=== PATIENT | female | born 1945 | race Caucasian/White ===

== ENCOUNTER 2017-06-08 20:08 | Emergency (ER) | payer MEDICARE ==
[~2017-06-08] VITALS: Ht 172.7 cm; Wt 81.0 kg
[~2017-06-08 20:08] MED LIST: ALBUAER3 INH; ASPI325T PO; BENI40TA3 PO; FAMO1TAB30 PO; LEVO125T4 PO; LIOT25TA3 PO; LORA-373 PO; PRED50 PO; TRAZ50TA12 PO; TRIA1TAB PO; VENTAER INH
[2017-06-08 20:11] VITALS: BP 143/70; PULSE 65; RESP 16; TEMP 97.9; O2SAT 98
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
[2017-06-08] MEDS ORDERED: ACETAMINOPHEN 500 MG CPLT PO ONE (21:00)
[2017-06-08] MEDS ORDERED: TRIA37.5 PO (21:01)
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
== END 2017-06-08 22:38 | disposition home or self-care (01) ==
LOC: NEPD 20:08
DX: S70.02XA Contusion of left hip, initial encounter (principal); M19.90 Unspecified osteoarthritis, unspecified site; J45.909 Unspecified asthma, uncomplicated; F32.9 Major depressive disorder, single episode, unspecified; I10 Essential (primary) hypertension; E78.00 Pure hypercholesterolemia, unspecified; M79.7 Fibromyalgia; E07.9 Disorder of thyroid, unspecified; W22.8XXA Striking against or struck by other objects, initial encounter
CPT/HCPCS: 73502; 99283

== ENCOUNTER 2017-09-21 23:41 | Emergency (ER) | payer MEDICARE ==
[~2017-09-21] VITALS: Ht 167.6 cm; Wt 85.0 kg
[~2017-09-21 23:41] MED LIST changes: +ASPI-183 PO; -ASPI325T PO; +BENI40TA29 PO; -BENI40TA3 PO; -LORA-373 PO; +LORA0.5T PO; -PRED50 PO; -TRIA1TAB PO; +TRIA37.5 PO
[2017-09-21 23:43] VITALS: BP 199/91; PULSE 74; RESP 16; TEMP 98.2; O2SAT 98
--- NOTE | 2017-09-22 00:11 | PD ---
HPI Chief Complaint: Abdominal Pain Time Seen by Provider: 23:55 Travel History International Travel<30 days: No Contact w/Intl Traveler<30days: No Traveled to known affect area: No History of Present Illness HPI 72-year-old female complaining of lower abdominal pain. Patient states that the pain started about 5 hours ago. Patient states the pain in cramping pain is sharp pain localized to lower abdomen. Patient denies any pain radiation. Patient denies any nausea vomiting diarrhea. Patient states that she has dysuria today. Patient denies any frequency. Patient denies any fever chills. Patient denies any back pain. Patient had multiple abdominal surgery including partial colon resection and colostomy with reversal and hernia repair in the past. On a scale of 1-10 the pain is a 5. Patient has history of hypertension with frequent elevated blood pressure from anxiety. Patient also has history of asthma, arthritis, fibromyalgia, hyperlipidemia, depression, thyroid disease. PFSH Past Medical History Arthritis: Yes Asthma: Yes Autoimmune Disease: Yes Depression: Yes Heart Rhythm Problems: No Cancer: Yes (skin cancer) Cardiovascular Problems: Yes (HTN, heart murmur) High Cholesterol: Yes Chest Pain: No Congestive Heart Failure: No COPD: No Diabetes: No Endocrine: Yes Gastrointestinal Disorders: Yes (hx of colon resection unsure of cause or possible steroid related) GERD: No Genitourinary: No Hiatal Hernia: No Hypertension: Yes Immune Disorder: Yes (hx of fibromyalgia) Implanted Vascular Access Dvce: No Musculoskeletal: Yes Neurologic: No Psychiatric: Yes Reproductive: No Respiratory: Yes (PT STS. CURRENTLY WITH BRONCHITIS) Immunizations Current: Yes Sleep Apnea: No Thyroid Disease: Yes Ulcer: No Influenza Vaccination: No Menopausal: Yes Past Surgical History Abdominal Surgery: Yes (colon resection with colostomy with reversal hernia repair, mesh ) Body Medical Devices: MESH IMPLANT ABDOMEN Cardiac Surgery: No Ear Surgery: No Endocrine Surgery: No Eye Surgery: No Genitourinary Surgery: No Gynecologic Surgery: Yes (hysterectomy) Hysterectomy: Yes Joint Replacement: Yes (BILATERAL HIP) Neurologic Surgery: No Oral Surgery: No Pacemaker: No Thoracic Surgery: No Other Surgery: Yes Social History Alcohol Use: Yes (3-4 X WEEK, WINE OCCASIONALLY) Tobacco Use: No Substance Use: No Allergies-Medications (Allergen,Severity, Reaction): Coded Allergies: Sulfa (Sulfonamide Antibiotics) (Verified Allergy, Severe, hives,sob, ) bacitracin (Verified Allergy, Severe, sob and hives, 09/21/17) cefepime (Verified Allergy, Severe, sob,hives, 09/21/17) ceftaroline fosamil (Verified Allergy, Severe, sob,hives, 09/21/17) celecoxib (Verified Allergy, Severe, sob,hives, 09/21/17) diclofenac (Verified Allergy, Severe, 09/21/17) doxycycline (Verified Allergy, Severe, sob,welts, 09/21/17) etodolac (Verified Allergy, Severe, 09/21/17) flurbiprofen (Verified Allergy, Severe, 09/21/17) gramicidin D (Verified Allergy, Severe, sob and hives, 09/21/17) ibuprofen (Verified Allergy, Severe, 09/21/17) indomethacin (Verified Allergy, Severe, 09/21/17) ketoprofen (Verified Allergy, Severe, 09/21/17) ketorolac (Verified Allergy, Severe, 09/21/17) minocycline (Verified Allergy, Severe, sob,welts, 09/21/17) naproxen (Verified Allergy, Severe, 09/21/17) neomycin (Verified Allergy, Severe, sob and hives, 09/21/17) oxaprozin (Verified Allergy, Severe, 09/21/17) penicillin G (Verified Allergy, Severe, sob hives, 09/21/17) polymyxin B (Verified Allergy, Severe, sob and hives, 09/21/17) tigecycline (Verified Allergy, Severe, sob,welts, 09/21/17) Reported Meds & Prescriptions Reported Meds & Active Scripts Active Reported Triamterene-Hydrochlorothiazide 37.5-25 Mg Tab 1 Tab PO DAILY Ventolin Hfa 18 GM Inh (Albuterol Sulfate) 90 Mcg/Act Aer 2 Puff INH DAILY PRN Proair Hfa 8.5 GM Inh (Albuterol Sulfate) 90 Mcg/Act Aer 2 Puff INH Q4 PRN 108 mcg/actuation Aspirin 325 Mg Tab 325 Mg PO DAILY Famotidine 10 Mg Tab 10 Mg PO DAILY PRN Trazodone (Trazodone HCl) 50 Mg Tab 50 Mg PO HS Liothyronine (Liothyronine Sodium) 25 Mcg Tab 25 Mcg PO DAILY Levothyroxine (Levothyroxine Sodium) 125 Mcg Tab 125 Mcg PO DAILY Benicar (Olmesartan) 40 Mg Tab 40 Mg PO DAILY Lorazepam 0.5 Mg Tab 0.5 Mg PO TID PRN Review of Systems General / Constitutional: No: Fever Eyes: No: Visual changes HENT: No: Headaches Cardiovascular: No: Chest Pain or Discomfort Respiratory: No: Shortness of Breath Gastrointestinal: Positive: Abdominal Pain Genitourinary: Positive: Dysuria Musculoskeletal: No: Pain Skin: No Rash Neurologic: No: Weakness Psychiatric: No: Depression Endocrine: No: Polydipsia Hematologic/Lymphatic: No: Easy Bruising Physical Exam Narrative GENERAL: Well-nourished, well-developed patient. SKIN: Focused skin assessment warm/dry. HEAD: Normocephalic. EYES: No scleral icterus. No injection or drainage. NECK: Supple, trachea midline. No JVD or lymphadenopathy. CARDIOVASCULAR: Regular rate and rhythm without murmurs, gallops, or rubs. RESPIRATORY: Breath sounds equal bilaterally. No accessory muscle use. GASTROINTESTINAL: Abdomen soft, nondistended. Patient has mild to moderate tenderness on palpation lower abdomen. No rebound tenderness. No mass. Well- healed surgical scar mid abdomen. No evidence of soft tissue mass or hernia. MUSCULOSKELETAL: No cyanosis, or edema. BACK: Nontender without obvious deformity. No CVA tenderness. Neurologic exam normal. Data Data Last Documented VS Vital Signs Date Time Temp Pulse Resp B/P (MAP) Pulse Ox O2 Delivery O2 Flow Rate FiO2 09/22/17 02:09 60 16 141/66 (91) 98 Room Air 09/21/17 23:43 98.2 Orders Orders Complete Blood Count With Diff (09/22/17 00:03) Comprehensive Metabolic Panel (09/22/17 00:03) Lipase (09/22/17 00:03) Prothrombin Time / Inr (Pt) (09/22/17 00:03) Act Partial Throm Time (Ptt) (09/22/17 00:03) Urinalysis - C+S If Indicated (09/22/17 00:03) Ct Abd/Pel W Iv Contrast(Rout) (09/22/17 00:03) Iv Access Insert/Monitor (09/22/17 00:03) Ecg Monitoring (09/22/17 00:03) Oximetry (09/22/17 00:03) Sodium Chloride 0.9% Flush (Ns Flush) (09/22/17 00:15) Iohexol 350 Inj (Omnipaque 350 Inj) (09/22/17 01:58) Labs Laboratory Tests Test 09/22/17 00:16 White Blood Count 7.5 TH/MM3 Red Blood Count 4.30 MIL/MM3 Hemoglobin 13.0 GM/DL Hematocrit 37.9 % Mean Corpuscular Volume 88.2 FL Mean Corpuscular Hemoglobin 30.3 PG Mean Corpuscular Hemoglobin Concent 34.4 % Red Cell Distribution Width 12.8 % Platelet Count 174 TH/MM3 Mean Platelet Volume 8.4 FL Neutrophils (%) (Auto) 66.5 % Lymphocytes (%) (Auto) 23.5 % Monocytes (%) (Auto) 7.8 % Eosinophils (%) (Auto) 1.5 % Basophils (%) (Auto) 0.7 % Neutrophils # (Auto) 5.0 TH/MM3 Lymphocytes # (Auto) 1.8 TH/MM3 Monocytes # (Auto) 0.6 TH/MM3 Eosinophils # (Auto) 0.1 TH/MM3 Basophils # (Auto) 0.0 TH/MM3 CBC Comment DIFF FINAL Differential Comment Prothrombin Time 10.3 SEC Prothromb Time International Ratio 1.0 RATIO Activated Partial Thromboplast Time 24.3 SEC Urine Color LIGHT-YELLOW Urine Turbidity CLEAR Urine pH 7.5 Urine Specific [place] 1.006 Urine Protein NEG mg/dL Urine Glucose (UA) NEG mg/dL Urine Ketones NEG mg/dL Urine Occult Blood NEG Urine Nitrite NEG Urine Bilirubin NEG Urine Urobilinogen LESS THAN 2.0 MG/DL Urine Leukocyte Esterase SMALL Urine WBC 2 /hpf Microscopic Urinalysis Comment CULT NOT INDICATED Blood Urea Nitrogen 15 MG/DL Creatinine 0.80 MG/DL Random Glucose 114 MG/DL Total Protein 7.0 GM/DL Albumin 4.2 GM/DL Calcium Level 9.1 MG/DL Alkaline Phosphatase 101 U/L Aspartate Amino Transf (AST/SGOT) 21 U/L Alanine Aminotransferase (ALT/SGPT) 35 U/L Total Bilirubin 0.3 MG/DL Sodium Level 140 MEQ/L Potassium Level 4.2 MEQ/L Chloride Level 106 MEQ/L Carbon Dioxide Level 26.8 MEQ/L Anion Gap 7 MEQ/L Estimat Glomerular Filtration Rate 71 ML/MIN Lipase 147 U/L MDM Medical Decision Making Medical Screen Exam Complete: Yes Emergency Medical Condition: Yes Interpretation(s) 1:37 AM. CBC within normal limit. CMP within normal limit. UA is negative. 2:[address] scan abdomen pelvis shows no acute pathology. Differential Diagnosis Differential diagnosis including colitis, UTI, pyelonephritis, nephrolithiasis, abdominal wall hernia. Narrative Course 72-year-old female with a low abdominal pain. History of multiple abdominal surgeries including partial bowel resection and colostomy and hernia repair. Diagnosis Primary Impression: Abdominal pain Qualified Codes: R10.9 - Unspecified abdominal pain Patient Instructions: General Instructions Additional Instructions: Tylenol for pain. Follow-up with personal physician. Return if worse. Med/Other Pt SpecificInfo: No Change to Meds Disposition: 01 DISCHARGE HOME Condition: Stable Michael Jarrell MD Sep 22, 2017 00:11
[2017-09-22] MEDS ORDERED: SODIUM CHLORIDE 0.9% FLUSH 10 ML FLUSH IV FLUSH PRN (00:15)
[2017-09-22 00:36] VITALS: O2SAT 98
[2017-09-22 01:04] LABS: BILIRUBIN, URINE NEG (NEG); BLOOD, URINE NEG (NEG); GLUCOSE,URINE NEG (NEG); KETONE, URINE NEG (NEG); NITRITE,URINE NEG (NEG); PH, URINE 7.5 (5.0-8.5); URINE COLOR LIGHT-YELLOW (YELLW/STRAW); URINE LEUKOCYTE ESTERASE SMALL (NEG)
[2017-09-22 01:05] LABS: BASOPHIL % 0.7 % (0.0-2.0); EOSINOPHIL # 0.1 TH/MM3 (0-0.4); EOSINOPHIL % 1.5 % (0.0-4.0); HEMATOCRIT 37.9 % (35.0-46.0); LYMPH % 23.5 % (9.0-44.0); LYMPHOCYTE # 1.8 TH/MM3 (1.0-4.8); MEAN CELL VOLUME 88.2 FL (80.0-100.0); MEAN CORPUSCULAR HEMOGLOBIN 30.3 PG (27.0-34.0); MEAN CORPUSCULAR HGB CONC 34.4 % (32.0-36.0); MEAN PLATELET VOLUME 8.4 FL (7.0-11.0); MONO % 7.8 % (0.0-8.0); MONOCYTE # 0.6 TH/MM3 (0-0.9); NEUT % 66.5 % (16.0-70.0); PLATELET COUNT 174 TH/MM3 (150-450); RED CELL DISTRIBUTION WIDTH 12.8 % (11.6-17.2); WHITE BLOOD COUNT 7.5 TH/MM3 (4.0-11.0)
[2017-09-22 01:15] LABS: PROTHROMBIN TIME - PATIENT 10.3 SEC (9.8-11.6)
[2017-09-22 01:28] LABS: ALBUMIN 4.2 GM/DL (3.4-5.0); ALT (GPT) 35 U/L (10-53); AST (GOT) 21 U/L (15-37); BICARBONATE 26.8 MEQ/L (21.0-32.0); BLOOD UREA NITROGEN 15 MG/DL (7-18); CALCIUM 9.1 MG/DL (8.5-10.1); CHLORIDE 106 MEQ/L (98-107); GLOMERULAR FILTRATION RATE 71 ML/MIN (>89); GLUCOSE,RANDOM 114 MG/DL (74-106); LIPASE 147 U/L (73-393); SODIUM (NA) 140 MEQ/L (136-145)
[2017-09-22 01:30] LABS: ALKALINE PHOSPHATASE 101 U/L (45-117); TOTAL BILIRUBIN ADULT 0.3 MG/DL (0.2-1.0)
[2017-09-22] MEDS ORDERED: IOHEXOL 350 MG/ML 10 ML VIAL (for RAD DIAG) IVCONTRAST ONE (01:58)
[2017-09-22 02:09] VITALS: BP 141/66; PULSE 60; RESP 16; O2SAT 98
--- NOTE | 2017-09-22 02:36 | RADRPT ---
EXAM DATE/TIME: 09/22/2017 01:51 [facility] COMPARISON: No previous studies available for comparison. INDICATIONS : Low abdominal pain after lifting her dog. IV CONTRAST: 71 cc Omnipaque 350 (iohexol) IV ORAL CONTRAST: No oral contrast ingested. RADIATION DOSE: 14.71 CTDIvol (mGy) MEDICAL HISTORY : Hypertension. Cardiovascular disease Fibromyalgia SURGICAL HISTORY : Colon resection. Hysterectomy.hernia repair and bilateral hip replacements ENCOUNTER: Initial ACUITY: 1 day PAIN SCALE: 5/10 LOCATION: abdomen TECHNIQUE: Volumetric scanning of the abdomen and pelvis was performed. Using automated exposure control and ad justment of the mA and/or kV according to patient size, radiation dose was kept as low as reasonably achievable to obtain optimal diagnostic quality images. DICOM format image data is available electro nically for review and comparison. FINDINGS: LOWER LUNGS: The visualized lower lungs are clear. LIVER: Homogeneous density without lesion. There is no dilation of the biliary tree. No calcified gallston es. SPLEEN: Normal size without lesion. PANCREAS: Within normal limits. KIDNEYS: Normal in size and shape. There is no mass, stone or hydronephrosis. ADRENAL GLANDS: Within normal limits. VASCULAR: There is no aortic aneurysm. BOWEL/MESENTERY: Evidence of previous colon resection. Anastomotic staple lines are patent. There are scattered divert icula of the remaining colon. No acute inflammatory changes. No free fluid. ABDOMINAL WALL: Previous ventral hernia repair with mesh. No recurrent hernia. RETROPERITONEUM: There is no lymphadenopathy. BLADDER: No wall thickening or mass. REPRODUCTIVE: Within normal limits. INGUINAL: There is no lymphadenopathy or hernia. MUSCULOSKELETAL: No acute bony abnormality demonstrated. Patient has bilateral hip arthroplasties, total on the right and bipolar on the left. CONCLUSION: 1. No acute abnormality demonstrated. 2. Previous ventral hernia repair with mesh. No recurrent abdominal wall defect. 3. Other surgical changes include hysterectomy and colon resection. Baron Benjamin MD on September 22, 2017 at 2:32 Board Certified Radiologist. This report was verified electronically.
== END 2017-09-22 03:11 | disposition home or self-care (01) ==
LOC: NEPC 23:41
DX: R10.30 Lower abdominal pain, unspecified (principal); R30.0 Dysuria; E07.9 Disorder of thyroid, unspecified; E78.00 Pure hypercholesterolemia, unspecified; I10 Essential (primary) hypertension; J45.909 Unspecified asthma, uncomplicated; Z79.82 Long term (current) use of aspirin
CPT/HCPCS: 74177; 80053; 81001; 83690; 85025; 85610; 85730; 99284; Q9967

== ENCOUNTER 2018-03-11 23:57 | Emergency (ER) | payer MEDICARE ==
[~2018-03-11] VITALS: Ht 172.7 cm; Wt 83.0 kg
[2018-03-12 00:01] VITALS: BP 165/72; PULSE 84; RESP 16; TEMP 97.7; O2SAT 99
[2018-03-12] MEDS ORDERED: methylPREDNISolone SOD SUCC 125 MG/2 ML VIAL IV PUSH ONE (00:15)
[2018-03-12] MEDS ORDERED: SODIUM CHLORIDE 0.9% FLUSH 10 ML FLUSH IV FLUSH PRN (00:15)
[2018-03-12] MEDS ORDERED: diphenhydrAMINE HCL 50 MG/ML VIAL IVP ONE (00:15)
[2018-03-12] MEDS ORDERED: FAMOTIDINE 20 MG/2 ML VIAL IV PUSH ONE (00:15)
[2018-03-12 00:22] VITALS: O2SAT 99
--- NOTE | 2018-03-12 01:24 | PD ---
HPI Chief Complaint: Allergic/Adverse Reaction Time Seen by Provider: 00:10 Travel History International Travel<30 days: No Contact w/Intl Traveler<30days: No Traveled to known affect area: No History of Present Illness HPI 73-year-old female presents to the emergency department for complaint of allergic reaction. Patient has been eating a lot of fish and shellfish and noted today to have redness of the face and a sensation of tightness in her throat. Patient states she took no medications prior to arrival to the emergency department. Patient has issues with multiple medications of multiple foods. Patient has had angioedema of the throat before. No stridor no hoarseness no wheezing no shortness of breath no chest pain no palpitations no near syncope or syncope. Patient denies any urticaria. Patient does have facial erythema and edema sparing the lips tongue and no noted sensation of swelling of the throat but did noted some tightness when trying to swallow. Patient presents now at this time for further evaluation. Patient denies any new medications or topical medication she is given a prescription for topical steroid by her substance abuse nurse which is not a new medication and has not been using this prior to onset of the symptoms. [facility] Past Medical History Narrative Medical Arthritis asthma skin cancer dyslipidemia multiple food and drug allergies fibromyalgia hypothyroidism partial colectomy secondary to colon complications from steroid use bilateral hip surgery alcohol use; nursing notes reviewed Arthritis: Yes Asthma: Yes Autoimmune Disease: Yes Depression: Yes Heart Rhythm Problems: No Cancer: Yes (skin cancer) Cardiovascular Problems: Yes (HTN) High Cholesterol: Yes Chest Pain: No Congestive Heart Failure: No COPD: No Diabetes: No Endocrine: Yes Gastrointestinal Disorders: Yes (hx of colon resection unsure of cause or possible steroid related) GERD: No Genitourinary: No Hiatal Hernia: No Hypertension: Yes Immune Disorder: Yes (hx of fibromyalgia) Implanted Vascular Access Dvce: No Musculoskeletal: Yes Neurologic: No Psychiatric: Yes Reproductive: No Respiratory: Yes (Asthma) Immunizations Current: Yes Sleep Apnea: No Thyroid Disease: Yes Ulcer: No Tetanus Vaccination: Unknown Influenza Vaccination: Yes Menopausal: Yes Past Surgical History Abdominal Surgery: Yes (colon resection with colostomy with reversal hernia repair, mesh ) Body Medical Devices: MESH IMPLANT ABDOMEN Cardiac Surgery: No Ear Surgery: No Endocrine Surgery: No Eye Surgery: No Genitourinary Surgery: No Gynecologic Surgery: Yes (hysterectomy) Hysterectomy: Yes Joint Replacement: Yes (BILATERAL HIP) Neurologic Surgery: No Oral Surgery: No Pacemaker: No Thoracic Surgery: No Other Surgery: Yes Social History Alcohol Use: Yes (1 beer nightly couple glasses of wine couple times a week) Tobacco Use: No Substance Use: No Allergies-Medications (Allergen,Severity, Reaction): Coded Allergies: Sulfa (Sulfonamide Antibiotics) (Verified Allergy, Severe, hives,sob, 03/12) bacitracin (Verified Allergy, Severe, sob and hives, 03/12/18) cefepime (Verified Allergy, Severe, sob,hives, 03/12/18) ceftaroline fosamil (Verified Allergy, Severe, sob,hives, 03/12/18) celecoxib (Verified Allergy, Severe, sob,hives, 03/12/18) diclofenac (Verified Allergy, Severe, 03/12/18) doxycycline (Verified Allergy, Severe, sob,welts, 03/12/18) etodolac (Verified Allergy, Severe, 03/12/18) flurbiprofen (Verified Allergy, Severe, 03/12/18) gramicidin D (Verified Allergy, Severe, sob and hives, 03/12/18) ibuprofen (Verified Allergy, Severe, 03/12/18) indomethacin (Verified Allergy, Severe, 03/12/18) ketoprofen (Verified Allergy, Severe, 03/12/18) ketorolac (Verified Allergy, Severe, 03/12/18) minocycline (Verified Allergy, Severe, sob,welts, 03/12/18) naproxen (Verified Allergy, Severe, 03/12/18) neomycin (Verified Allergy, Severe, sob and hives, 03/12/18) oxaprozin (Verified Allergy, Severe, 03/12/18) penicillin G (Verified Allergy, Severe, sob hives, 03/12/18) polymyxin B (Verified Allergy, Severe, sob and hives, 03/12/18) tigecycline (Verified Allergy, Severe, sob,welts, 03/12/18) Reported Meds & Prescriptions Reported Meds & Active Scripts Active Medrol Dosepak (Methylprednisolone) 4 Mg Dspk 4 Mg PO DIRECTED Per Pharmacist direction Reported Triamterene-Hydrochlorothiazide 37.5-25 Mg Tab 1 Tab PO DAILY Ventolin Hfa 18 GM Inh (Albuterol Sulfate) 90 Mcg/Act Aer 2 Puff INH DAILY PRN Proair Hfa 8.5 GM Inh (Albuterol Sulfate) 90 Mcg/Act Aer 2 Puff INH Q4 PRN 108 mcg/actuation Aspirin 325 Mg Tab 325 Mg PO DAILY Famotidine 10 Mg Tab 10 Mg PO DAILY PRN Trazodone (Trazodone HCl) 50 Mg Tab 50 Mg PO HS Liothyronine (Liothyronine Sodium) 25 Mcg Tab 25 Mcg PO DAILY Levothyroxine (Levothyroxine Sodium) 125 Mcg Tab 125 Mcg PO DAILY Benicar (Olmesartan) 40 Mg Tab 40 Mg PO DAILY Lorazepam 0.5 Mg Tab 0.5 Mg PO TID PRN Review of Systems Except as stated in HPI: all other systems reviewed are Neg Physical Exam Narrative GENERAL: Well-developed well-nourished female no acute distress no respiratory distress no stridor or hoarseness SKIN: Warm and dry. Facial erythema with interrupted and confluent patches no urticaria soft tissue edema infraorbital and periorbital no vesicles no pustules no petechia no purpura HEAD: Normocephalic. EYES: No scleral icterus. No injection or drainage. Extraocular muscles intact pupils equal round reactive to light ENT: Mucous membranes moist airway is patent no lip tongue or posterior pharyngeal edema/angioedema NECK: Supple, trachea midline. No JVD or lymphadenopathy. No meningismus no nuchal rigidity CARDIOVASCULAR: Regular rate and rhythm without murmurs, gallops, or rubs. RESPIRATORY: Breath sounds equal bilaterally. No accessory muscle use. GASTROINTESTINAL: Abdomen soft, non-tender, nondistended. MUSCULOSKELETAL: No cyanosis, or edema. BACK: Nontender without obvious deformity. No CVA tenderness. Data Data Last Documented VS Vital Signs Date Time Temp Pulse Resp B/P (MAP) Pulse Ox O2 Delivery O2 Flow Rate FiO2 03/12/18 02:47 61 16 155/84 (107) 96 Room Air 03/12/18 00:01 97.7 Orders Orders Ecg Monitoring (03/12/18 00:10) Iv Access Insert/Monitor (03/12/18 00:10) Oximetry (03/12/18 00:10) Diphenhydramine Inj (Benadryl Inj) (03/12/18 00:15) Methylprednisolone So Succ Inj (Solumedr (03/12/18 00:15) Famotidine Inj (Pepcid Inj) (03/12/18 00:15) Sodium Chloride 0.9% Flush (Ns Flush) (03/12/18 00:15) Sodium Chlorid 0.9% 500 Ml Inj (Ns 500 M (03/12/18 01:30) MDM Medical Decision Making Medical Screen Exam Complete: Yes Emergency Medical Condition: Yes Medical Record Reviewed: Yes Differential Diagnosis Acute allergic reaction, angioedema, anaphylaxis, contact dermatitis Narrative Course Patient placed on lead c developer with continuous pulse oximetry IV access obtained patient administered Benadryl 25 mg IV Solu-Medrol 125 mg IV Pepcid 20 mg IV @ 2AM reports feeling symptomatically improved At 3:30 AM patient is clinically improved and stable for outpatient management she has been observed for 3 hours post medication administration without any recurrence of symptoms and continues to have evidence of resolving facial erythema. No lip tongue or throat swelling no angioedema. Critical Care Narrative Aggregate critical care time was 35 minutes. Time to perform other separately billable procedures was not included in the critical care time. My time did not include minutes spent treating any other patients simultaneously or on activities that did not directly contribute to the patient's treatment. The services I provided to this patient were to treat and/or prevent clinically significant deterioration that could result in: Angioedema anaphylaxis I provided critical care services requiring my management, as noted below: Chart data review, documentation time, medication orders and management, vital sign assessments/reviewing monitor data, ordering and reviewing lab tests, ordering and interpreting/reviewing x-rays and diagnostic studies, care of the patient and discussion of the patient with the admitting physicians. Diagnosis Primary Impression: Allergic reaction Referrals: Primary Care Physician 1 day Patient Instructions: General Instructions Additional Instructions: Take Benadryl 25-50 mg every 4-6 hours for allergic reaction Take Zantac 150 twice daily for 7 days or Pepcid 20 mg twice daily for 7 days Complete course of steroid taper Medrol Dosepak as prescribed Avoid any shellfish or seafood in the future Avoid overheating, hot showers, hot foods or beverages for the next 12-24 hours Increase fluid hydration Do not drink alcoholic beverages Return to the emergency department for any concerns or change in condition Follow-up with your primary care provider call office in a.m. to schedule follow -up appointment this week Med/Other Pt SpecificInfo: Prescription(s) given Scripts Methylprednisolone Dosepak (Medrol Dosepak) 4 Mg Dspk 4 MG PO DIRECTED, #1 DSPK 0 Refills Per Pharmacist direction Prov: Kay Lerma MD 03/12/18 Disposition: 01 DISCHARGE HOME Condition: Stable Kay Lerma MD Mar 12, 2018 01:24
[2018-03-12] MEDS ORDERED: SODIUM CHLORID 0.9% 500 ML INJ 500 ML IV ONE (01:30)
[2018-03-12 02:47] VITALS: BP 155/84; PULSE 61; RESP 16; O2SAT 96
[2018-03-12] MEDS ORDERED: MEDR4PAK PO (03:26)
== END 2018-03-12 03:57 | disposition home or self-care (01) ==
LOC: NEPC 23:57
DX: T78.40XA Allergy, unspecified, initial encounter (principal); L53.9 Erythematous condition, unspecified; M19.90 Unspecified osteoarthritis, unspecified site; J45.909 Unspecified asthma, uncomplicated; F32.9 Major depressive disorder, single episode, unspecified; I10 Essential (primary) hypertension; E78.00 Pure hypercholesterolemia, unspecified; M79.7 Fibromyalgia; E07.9 Disorder of thyroid, unspecified; Z79.899 Other long term (current) drug therapy; Z88.2 Allergy status to sulfonamides; Z88.8 Allergy status to other drugs, medicaments and biological substances; Z88.6 Allergy status to analgesic agent; Z88.0 Allergy status to penicillin
CPT/HCPCS: 96361; 96374; 96375; 99291; J1200; J2930; J7040